=== PATIENT | male | born 1950 | race Caucasian/White ===

== ENCOUNTER 2024-09-20 10:32 | Day surgery (SDC) | payer OTHER ==
[2024-09-16 09:31] LABS: APTT 28 SECONDS (22-32); PROTHROMBIN TIME 10.9 SECONDS (9.0-12.0)
[2024-09-16 09:32] LABS: BASOPHILS % (AUTO) 0.8 % (0-1); EOSINOPHILS # (AUTO) 0.1 X10'3 (0-0.9); EOSINOPHILS % (AUTO) 2.3 % (0-6); HEMATOCRIT 42.9 % (42.0-52.0); HEMOGLOBIN 14.6 g/dl (14.0-17.9); LYMPHOCYTES # (AUTO) 1.5 X10'3 (1.1-4.8); LYMPHOCYTES % (AUTO) 28.9 % (21-51); MEAN CORPUSCULAR HEMOGLOBIN 33.2 PG (27.0-31.0); MEAN CORPUSCULAR VOLUME 97.8 FL (78-98); MEAN PLATELET VOLUME 7.3 FL (7.4-10.4); MONOCYTES # (AUTO) 0.4 X10'3 (0-0.9); MONOCYTES % (AUTO) 8.9 % (2-12); NEUTROPHILS % (AUTO) 59.1 % (42-75); PLATELET COUNT 184 X10'3 (140-440); RED BLOOD COUNT 4.39 X10'6 (4.70-6.10); RED CELL DISTRIBUTION WIDTH 12.9 % (11.5-14.5)
[2024-09-16 10:09] LABS: ANION GAP 7 (8-16); BLOOD UREA NITROGEN 14 MG/DL (7-18); BUN/CREATININE RATIO 15.7 (10.0-20.0); CHLORIDE 105 MMOL/L (99-107); CHOL/HDL RATIO 2.5 (0.00-4.99); CHOLESTEROL 121 MG/DL (0-200); CREATININE 0.89 MG/DL (0.60-1.10); GLUCOSE 105 MG/DL (70-104); HDL CHOLESTEROL 48 MG/DL (35-60); LDL CHOLESTEROL 60 MG/DL (50-100); POTASSIUM 4.1 MMOL/L (3.5-5.1); SODIUM 140 MMOL/L (135-145); TOTAL CARBON DIOXIDE 28.2 MMOL/L (24-32); TRIGLYCERIDES 73 MG/DL (20-135); eGFR 84 ML/MIN
[~2024-09-20] VITALS: Ht 182.9 cm; Wt 99.3 kg
[2024-09-20] VITALS (8 sets, daily range): BP systolic 139–168; BP diastolic 68–81; PULSE 58–64; RESP 16; TEMP 98.1; O2SAT 94–97
[2024-09-20] MEDS ORDERED: diphenhydrAMINE 25mg capsule PO PRN (10:55)
[2024-09-20] MEDS ORDERED: LORazepam 0.5 MG tablet PO PRN (10:55)
[2024-09-20] MEDS ORDERED: normal saline 1,000 ML IV SCH (10:55)
[2024-09-20] MEDS ORDERED: ATOR40TA PO (11:56)
[2024-09-20] MEDS ORDERED: TRIA15CR62 TOP (11:56)
[2024-09-20] MEDS ORDERED: MULT-1085 PO (11:56)
[2024-09-20] MEDS ORDERED: CETI-194 PO (11:56)
[2024-09-20] MEDS ORDERED: CHOL200013 PO (11:56)
[2024-09-20] MEDS ORDERED: OMEG100037 PO (11:56)
[2024-09-20] MEDS ORDERED: 5-HY100C PO (11:56)
[2024-09-20] MEDS ORDERED: AMLO5TAB16 PO (11:56)
[2024-09-20] MEDS ORDERED: NITR0.4T51 SL (11:56)
[2024-09-20] MEDS ORDERED: ASPI81TA52 PO (11:56)
[2024-09-20] MEDS ORDERED: [UNRECOGNIZED DRUG - OTHER] (11:56)
[2024-09-20] MEDS ORDERED: CLOT45CR29 TOP (11:56)
[2024-09-20] MEDS ORDERED: verapamil 2.5 mg/ml inj IV ONE (11:59)
[2024-09-20] MEDS ORDERED: LIDOcaine 1% (10mg/ml) 2ml vial ONE (11:59)
[2024-09-20] MEDS ORDERED: iohexol 350MG/ML 100ml bottle IV ONE ×2 (12:00→13:20)
[2024-09-20] MEDS ORDERED: midazolam 1 mg/ML 2ml injection ONE (12:00)
[2024-09-20] MEDS ORDERED: heparin 1,000unit/ml 10ml vial 10 ML ONE ×2 (12:00→13:31)
[2024-09-20] MEDS ORDERED: fentaNYL/PF 50MCG/1 ML 2ML syringe ONE (12:00)
[2024-09-20] MEDS ORDERED: nitroGLYCERIN 500mcg/5mL D5W 5 ML IV ONE (12:03)
[2024-09-20 13:15] LABS: ISTAT HGB ART 13.3 g/dl (14.0-17.9); ISTAT Hct ART 39 %PCV (42-52); ISTAT O2 SATURATION ARTERIAL 89 % (95-98); ISTAT SOURCE ART
[2024-09-20 13:17] LABS: ISTAT HGB MIX 13.3 g/dl (14.0-17.9); ISTAT Hct MIX 39 %PCV (42-52); ISTAT O2 SATURATION MIX VENOUS 69 % (60-80); ISTAT SOURCE VEN
[2024-09-20] MEDS ORDERED: HYDROcodone/acetaminophen 10/325mg tab PO PRN (14:35)
[2024-09-20] MEDS ORDERED: HYDROcodone/acetaminophen 5mg/325mg tablet PO PRN (14:35)
== END 2024-09-20 16:50 | disposition home or self-care (01) ==
LOC: SSTAY O 10:32
PROVIDERS: ATTEND Student in an Organized Health Care Education/Training Program
DX: I35.0 Nonrheumatic aortic (valve) stenosis (principal); I25.10 Atherosclerotic heart disease of native coronary artery without angina pectoris; I10 Essential (primary) hypertension; G47.33 Obstructive sleep apnea (adult) (pediatric); G47.00 Insomnia, unspecified; E78.5 Hyperlipidemia, unspecified; Z86.0100 Personal history of colon polyps, unspecified; Z79.01 Long term (current) use of anticoagulants; Z79.82 Long term (current) use of aspirin; Z79.899 Other long term (current) drug therapy; Z88.0 Allergy status to penicillin; Z88.5 Allergy status to narcotic agent; Z95.5 Presence of coronary angioplasty implant and graft; Z88.6 Allergy status to analgesic agent; Z88.1 Allergy status to other antibiotic agents; M19.90 Unspecified osteoarthritis, unspecified site
CPT/HCPCS: 36415; 80048; 80061; 82803; 85014; 85025; 85610; 85730; 93005; 93456; 93571; 99152; J1644; J2003; J2250; J3010; J3490; J7030; Q9967; 93572; 99153; A6258; A6402; C1751; C1769; C1894

== ENCOUNTER 2024-09-22 05:09 | Inpatient (IN) | payer OTHER, MEDICARE ==
[2024-09-21 13:47] VITALS: PULSE 72; RESP 14; O2SAT 97
[2024-09-21 14:11] LABS: BASOPHILS % (AUTO) 0.5 % (0-1); EOSINOPHILS # (AUTO) 0.1 X10'3 (0-0.9); EOSINOPHILS % (AUTO) 1.4 % (0-6); LYMPHOCYTES # (AUTO) 1.5 X10'3 (1.1-4.8); LYMPHOCYTES % (AUTO) 25.2 % (21-51); MEAN CORPUSCULAR HEMOGLOBIN 33.1 PG (27.0-31.0); MEAN CORPUSCULAR HGB CONC 33.7 g/dL (33.0-36.5); MEAN CORPUSCULAR VOLUME 98.3 FL (78-98); MEAN PLATELET VOLUME 7.6 FL (7.4-10.4); MONOCYTES # (AUTO) 0.6 X10'3 (0-0.9); MONOCYTES % (AUTO) 9.5 % (2-12); NEUTROPHILS # (AUTO) 3.8 X10'3 (1.8-7.7); NEUTROPHILS % (AUTO) 63.4 % (42-75); PRE OP HEMOGLOBIN 14.5 g/dL (14.0-17.9); PRE OP PLATELET COUNT 193 X10'3 (140-440); RED BLOOD COUNT 4.38 X10'6 (4.70-6.10)
[2024-09-21 14:18] LABS: BILIRUBIN,URINE NEGATIVE (Neg); CLARITY,URINE CLEAR (Clear); COLOR,URINE YELLOW (Yellow); GLUCOSE, URINE NEGATIVE (Neg); KETONES,URINE TRACE mg/dl (Neg); LEUKOCYTE ESTERASE ,URINE NEGATIVE (Neg); NITRITES, URINE NEGATIVE (Neg); OCCULT BLOOD,URINE NEGATIVE (Neg); PH,URINE 5.5 (4.8-8.0); PROTEIN,URINE NEGATIVE (Neg); UROBILINOGEN,URINE 0.2 E.U/dL (0.2-1.0)
[2024-09-21 14:20] LABS: UA COLLECTION TYPE CLN CATCH MIDSTREAM
[2024-09-21 14:27] LABS: PRE OP PROTIME 10.9 SECONDS (9.0-12.0)
[2024-09-21 14:33] LABS: ALBUMIN 3.8 G/DL (3.4-5.0); ALBUMIN/GLOBULIN RATIO 1.2 (1.1-1.5); ALKALINE PHOSPHATASE 48 IU/L (46-116); BLOOD UREA NITROGEN 16 MG/DL (7-18); BUN/CREATININE RATIO 17.4 (10.0-20.0); CALCIUM 8.8 MG/DL (8.5-10.1); CHLORIDE 108 MMOL/L (99-107); CREATININE 0.92 MG/DL (0.60-1.10); PRE OP ALT 37 U/L (30-65); PRE OP ANION GAP 6 (8-16); PRE OP AST 21 U/L (10-37); PRE OP BILIRUB, TOTAL 0.6 MG/DL (0.0-1.0); PRE OP GLUCOSE 118 MG/DL (70-104); PRE OP POTASSIUM 4.4 MMOL/L (3.4-5.1); PRE OP SODIUM 143 MMOL/L (135-145); TOTAL CARBON DIOXIDE 28.8 MMOL/L (24-32); eGFR 81 ML/MIN
[2024-09-21 14:57] LABS: HEMOGLOBIN A1C 5.6 % (4.5-6.2)
[2024-09-21 15:01] LABS: ABG BASE EXCESS -1.4 mmol/L (-2.0-3.0); ABG HCO3 22.8 mmol/L (21.0-28.0); ABG OXYGEN SATURATION 96.3 % (94.0-98.0); ABG PCO2 (T) 36.8 mmHg (35.0-48.0); ABG PO2 (T) 85.9 mmHg (83.0-108.0); FCOHb 0.3 % (0.5-1.5); FHHb 3.7 % (0.0-5.0); FMetHb 0.3 % (0.0-1.5); FO2Hb 95.7 % (94.0-98.0); MODE ROOM AIR; TOTAL HEMOGLOBIN 14.6 G/dl (13.5-17.5)
[2024-09-22] VITALS (7 sets, daily range): BP systolic 104–155; BP diastolic 47–74; PULSE 70–79; RESP 10–16; TEMP 97.8; O2SAT 97–100
[~2024-09-22] VITALS: Ht 177.8 cm; Wt 104.0 kg
[~2024-09-22 05:09] MED LIST: AMLO5TAB16 PO; ATOR40TA PO
[2024-09-22] MEDS: albuterol 2.5 MG/3 ML nebule NEB ONE (05:30)
[2024-09-22] MEDS ORDERED: dextrose 50%-water 50ml dispensing syringe IV PRN ×2 (05:30→20:20)
[2024-09-22] MEDS ORDERED: insulin glargine (Lantus) pen - multi-dose SQ PRN ×2 (05:30→20:20)
[2024-09-22] MEDS: ceFAZolin 2gm in dextrose, iso 50 ML IV ONE (05:30)
[2024-09-22] MEDS ORDERED: Insulin Reg/NS 100units/100mL 100 ML IV SCH (05:30)
[2024-09-22] MEDS ORDERED: potassium Cl 2 mEq/ml inj IV ONE (08:00)
[2024-09-22] MEDS: mupirocin 2% nasal ointment 1gm UD NS ONE (12:20)
[2024-09-22] MEDS: metoprolol tartrate 12.5mg (1/2 tablet) PO ONE (12:21)
[2024-09-22] MEDS: ringers solution, lacted 1,000 ML IV SCH (12:21)
[2024-09-22] MEDS: VANCOMYCIN/H2O 1.5g/300mL PB 300 ML IV ONE (12:22)
[2024-09-22] MEDS: famotidine 20mg tablet PO ONE (12:23)
[2024-09-22] MEDS ORDERED: ceFAZolin 1000mg inj ONE (13:48)
[2024-09-22] MEDS ORDERED: epiNEPHrine 1 mg/ml inj ONE (13:48)
[2024-09-22] MEDS ORDERED: ROPIVAcaine 0.5% (5mg/ml) 30ml vial ONE (13:49)
[2024-09-22] MEDS ORDERED: vancomycin 1,000mg inj ONE (13:49)
[2024-09-22] MEDS ORDERED: ipratropium/albuterol 3ml nebule IH PRN (15:00)
[2024-09-22] MEDS: midazolam 1 mg/ML 2ml injection IV ONE (16:19)
[2024-09-22] MEDS: ceFAZolin 1000mg inj IR ONE (16:20)
[2024-09-22] MEDS ORDERED: isoflurane 100ml inhalation liquid IH ONE (16:32)
[2024-09-22] MEDS ORDERED: SUfentanil 50mcg/ml 1ml amp IV ONE (16:32)
[2024-09-22] MEDS ORDERED: rocuronium 10mg/ml inj IV ONE ×2 (17:05)
[2024-09-22 17:06] LABS: ABG BASE EXCESS -0.4 mmol/L (-2.0-3.0); ABG HCO3 22.6 mmol/L (21.0-28.0); ABG OXYGEN SATURATION 99.5 % (94.0-98.0); ABG PCO2 32.3 mmHg (35.0-48.0); ABG PH 7.463 (7.350-7.450); ABG PO2 459.8 mmHg (83.0-108.0); CL (ABG) 103 mmol/L (98-107); FHHb 0.5 % (0.0-5.0); FMetHb 0.3 % (0.0-1.5); FO2Hb 99.2 % (94.0-98.0); GLUCOSE (ABG) 93 mg/dl (65-95); IONIZED CA (ABG) 1.18 mmol/L (1.15-1.33); K (ABG) 4.4 mmol/L (3.40-4.50); TOTAL HEMOGLOBIN 13.4 G/dl (13.5-17.5)
[2024-09-22 18:06] LABS: ABG BASE EXCESS 1.2 mmol/L (-2.0-3.0); ABG HCO3 24.7 mmol/L (21.0-28.0); ABG OXYGEN SATURATION 98.8 % (94.0-98.0); ABG PCO2 34.5 mmHg (35.0-48.0); ABG PH 7.472 (7.350-7.450); CL (ABG) 100 mmol/L (98-107); FCOHb 0.2 % (0.5-1.5); FHHb 1.2 % (0.0-5.0); FMetHb 0.2 % (0.0-1.5); FO2Hb 98.4 % (94.0-98.0); GLUCOSE (ABG) 101 mg/dl (65-95); IONIZED CA (ABG) 0.99 mmol/L (1.15-1.33); K (ABG) 3.9 mmol/L (3.40-4.50); TOTAL HEMOGLOBIN 9.9 G/dl (13.5-17.5)
[2024-09-22 18:36] LABS: ABG BASE EXCESS 1.3 mmol/L (-2.0-3.0); ABG HCO3 25.3 mmol/L (21.0-28.0); ABG OXYGEN SATURATION 98.9 % (94.0-98.0); ABG PH 7.442 (7.350-7.450); CL (ABG) 102 mmol/L (98-107); FCOHb 0.2 % (0.5-1.5); FHHb 1.1 % (0.0-5.0); FMetHb 0.2 % (0.0-1.5); FO2Hb 98.5 % (94.0-98.0); GLUCOSE (ABG) 121 mg/dl (65-95); IONIZED CA (ABG) 1.02 mmol/L (1.15-1.33); K (ABG) 4.9 mmol/L (3.40-4.50); TOTAL HEMOGLOBIN 10.4 G/dl (13.5-17.5)
[2024-09-22 19:01] LABS: ABG BASE EXCESS -0.3 mmol/L (-2.0-3.0); ABG OXYGEN SATURATION 99.3 % (94.0-98.0); ABG PCO2 37.8 mmHg (35.0-48.0); CL (ABG) 102 mmol/L (98-107); FCOHb 0.3 % (0.5-1.5); FHHb 0.7 % (0.0-5.0); FMetHb 0.3 % (0.0-1.5); FO2Hb 98.7 % (94.0-98.0); GLUCOSE (ABG) 133 mg/dl (65-95); IONIZED CA (ABG) 1.04 mmol/L (1.15-1.33); K (ABG) 5.3 mmol/L (3.40-4.50); TOTAL HEMOGLOBIN 9.8 G/dl (13.5-17.5)
[2024-09-22 19:34] LABS: ABG BASE EXCESS -0.9 mmol/L (-2.0-3.0); ABG HCO3 23.4 mmol/L (21.0-28.0); ABG OXYGEN SATURATION 99.2 % (94.0-98.0); ABG PCO2 37.1 mmHg (35.0-48.0); ABG PH 7.418 (7.350-7.450); CL (ABG) 102 mmol/L (98-107); FCOHb 0.3 % (0.5-1.5); FHHb 0.8 % (0.0-5.0); FMetHb 0.3 % (0.0-1.5); FO2Hb 98.6 % (94.0-98.0); GLUCOSE (ABG) 151 mg/dl (65-95); IONIZED CA (ABG) 1.05 mmol/L (1.15-1.33); TOTAL HEMOGLOBIN 9.9 G/dl (13.5-17.5)
[2024-09-22 19:58] LABS: ABG BASE EXCESS 1.1 mmol/L (-2.0-3.0); ABG HCO3 25.2 mmol/L (21.0-28.0); ABG OXYGEN SATURATION 94.5 % (94.0-98.0); ABG PCO2 37.8 mmHg (35.0-48.0); ABG PH 7.441 (7.350-7.450); ABG PO2 73.9 mmHg (83.0-108.0); CL (ABG) 103 mmol/L (98-107); FCOHb 0.3 % (0.5-1.5); FHHb 5.5 % (0.0-5.0); FMetHb 0.3 % (0.0-1.5); FO2Hb 93.9 % (94.0-98.0); GLUCOSE (ABG) 154 mg/dl (65-95); IONIZED CA (ABG) 1.19 mmol/L (1.15-1.33); K (ABG) 4.6 mmol/L (3.40-4.50); TOTAL HEMOGLOBIN 9.8 G/dl (13.5-17.5)
[2024-09-22 20:01] LABS: ACTIVATED CLOTTING TIME 118 SEC (101-148)
[2024-09-22] MEDS ORDERED: morphine 10mg/ml inj. ONE (20:09)
[2024-09-22] MEDS ORDERED: potassium CL 10mEq/100ml bag 100 ML IV PRN (20:20)
[2024-09-22] MEDS ORDERED: Neutra Phos packet PO PRN (20:20)
[2024-09-22] MEDS ORDERED: metoclopramide 5 mg/ml inj IV PRN (20:20)
[2024-09-22] MEDS ORDERED: potassium Cl 20 mEq SR tablet PO PRN (20:20)
[2024-09-22] MEDS ORDERED: sodium phosphate inj. 15 MMOL in dextrose 5%-water 250 ML IV PRN (20:20)
[2024-09-22] MEDS ORDERED: mineral oil 133ml enema RC PRN (20:20)
[2024-09-22] MEDS ORDERED: potassium Cl 40MEQ/1/2NS 520ml 520 ML IV PRN (20:20)
[2024-09-22] MEDS ORDERED: NORepinephrine 8mg/ 250ml NS 250 ML IV PRN (20:20)
[2024-09-22] MEDS ORDERED: bisacodyl 10mg suppository rectal RC PRN (20:20)
[2024-09-22] MEDS ORDERED: acetaminophen 325mg tablet PO PRN (20:20)
[2024-09-22] MEDS ORDERED: magnesium hydroxide 30ml (MOM) UD suspension PO PRN (20:20)
[2024-09-22] MEDS ORDERED: potassium Cl 20mEq/100mL bag 100 ML IV PRN (20:20)
[2024-09-22] MEDS ORDERED: sodium phosphate inj. 30 MMOL in dextrose 5%-water 250 ML IV PRN (20:20)
[2024-09-22] MEDS ORDERED: magnesium sulf-water 4G/100mL 100 ML IV PRN (20:20)
[2024-09-22] MEDS ORDERED: niCARDipine-NS 40mg/200ml IVPB 200 ML IV PRN (20:20)
[2024-09-22 20:52] LABS: BASOPHILS % (AUTO) 0.3 % (0-1); EOSINOPHILS % (AUTO) 0.4 % (0-6); HEMATOCRIT 32.8 % (42.0-52.0); HEMOGLOBIN 11.1 g/dl (14.0-17.9); LYMPHOCYTES # (AUTO) 0.7 X10'3 (1.1-4.8); LYMPHOCYTES % (AUTO) 7.3 % (21-51); MEAN CORPUSCULAR HEMOGLOBIN 33.3 PG (27.0-31.0); MEAN CORPUSCULAR HGB CONC 33.7 g/dL (33.0-36.5); MEAN CORPUSCULAR VOLUME 98.7 FL (78-98); MEAN PLATELET VOLUME 7.3 FL (7.4-10.4); MONOCYTES # (AUTO) 0.3 X10'3 (0-0.9); MONOCYTES % (AUTO) 3.2 % (2-12); NEUTROPHILS # (AUTO) 9.1 X10'3 (1.8-7.7); NEUTROPHILS % (AUTO) 88.8 % (42-75); PLATELET COUNT 101 X10'3 (140-440); RED BLOOD COUNT 3.32 X10'6 (4.70-6.10); RED CELL DISTRIBUTION WIDTH 12.7 % (11.5-14.5); WHITE BLOOD COUNT 10.2 X10'3 (4.5-11.0)
[2024-09-22 21:12] LABS: ABG BASE EXCESS -1.1 mmol/L (-2.0-3.0); ABG HCO3 21.7 mmol/L (21.0-28.0); ABG OXYGEN SATURATION 98.6 % (94.0-98.0); ABG PCO2 (T) 29.1 mmHg (35.0-48.0); ABG PH (T) 7.487 (7.350-7.450); ABG PO2 (T) 139.2 mmHg (83.0-108.0); FCOHb 0.1 % (0.5-1.5); FHHb 1.4 % (0.0-5.0); FMetHb 0.3 % (0.0-1.5); FO2Hb 98.2 % (94.0-98.0); MODE VENT - SIMV; PATIENT TEMPERATURE 36.2; PEEP 5 cm H2O; RESPIRATORY RATE 14 b/min; TIDAL VOLUME 650 mL; TOTAL HEMOGLOBIN 11.2 G/dl (13.5-17.5)
[2024-09-22] MEDS: sodium chloride 0.45% 1,000 ML IV SCH (21:31)
[2024-09-22] MEDS: Insulin Reg/NS 100units/100mL 100 ML IV SCH (21:36)
[2024-09-22 21:46] LABS: ALANINE AMINOTRANSFERASE 29 U/L (12-78); ALBUMIN 2.8 G/DL (3.4-5.0); ALBUMIN/GLOBULIN RATIO 1.5 (1.1-1.5); ALKALINE PHOSPHATASE 29 IU/L (46-116); ANION GAP 8 (8-16); BILIRUBIN,TOTAL 1.2 MG/DL (0.1-1.0); BLOOD UREA NITROGEN 13 MG/DL (7-18); BUN/CREATININE RATIO 14.4 (10.0-20.0); CALCIUM 7.8 MG/DL (8.5-10.1); CHLORIDE 108 MMOL/L (99-107); GLUCOSE 130 MG/DL (70-104); MAGNESIUM 2.5 MG/DL (1.5-2.4); SODIUM 142 MMOL/L (135-145); TOTAL CARBON DIOXIDE 26.2 MMOL/L (24-32); TOTAL PROTEIN 4.7 G/DL (6.4-8.2); eCRCL 75 ML/MIN; eGFR 83 ML/MIN
[2024-09-22 21:47] LABS: ASPARTATE AMINO TRANSFERASE 46 U/L (10-37); POTASSIUM 3.8 MMOL/L (3.5-5.1)
[2024-09-22] MEDS: atorvastatin 10mg tablet PO SCH (21:47)
[2024-09-22] MEDS: nitroGLYCERIN-Tridil 50MG/D5W 250 ML IV SCH (21:48)
[2024-09-22] MEDS: albumin (Human) 5% 250ml 250 ML IV PRN (21:49)
[2024-09-22 21:59] LABS: APTT 29 SECONDS (22-32); FIBRINOGEN 150 MG/DL (177-424); INR 1.4 INR
[2024-09-22] MEDS ORDERED: sodium phosphate inj. 15 MMOL in normal saline 250ml IV soln 250 ML IV PRN (22:06)
[2024-09-22] MEDS: potassium Cl 40MEQ/270ML bag 250 ML IV PRN (22:44)
[2024-09-22] MEDS: sodium phosphate inj. 30 MMOL in normal saline 250ml IV soln 250 ML IV PRN (22:44)
[2024-09-23] VITALS (27 sets, daily range): BP systolic 89–143; BP diastolic 38–66; PULSE 73–105; RESP 11–27; O2SAT 90–98
[2024-09-23] MEDS: ceFAZolin/D5W- 1GM premix 50 ML IV SCH (00:09)
[2024-09-23] MEDS: morphine 2 MG/ML inj. syringe IV PRN (00:18)
[2024-09-23 01:45] LABS: ABG BASE EXCESS -8.6 mmol/L (-2.0-3.0); ABG HCO3 16.7 mmol/L (21.0-28.0); ABG OXYGEN SATURATION 95.9 % (94.0-98.0); ABG PCO2 (T) 33.2 mmHg (35.0-48.0); ABG PH (T) 7.318 (7.350-7.450); ABG PO2 (T) 94.5 mmHg (83.0-108.0); FCOHb 0.2 % (0.5-1.5); FHHb 4.1 % (0.0-5.0); FMetHb 0.3 % (0.0-1.5); FO2Hb 95.4 % (94.0-98.0); MODE VENT - CPAP; PATIENT TEMPERATURE 36.6; PEEP 5 cm H2O; TOTAL HEMOGLOBIN 10.6 G/dl (13.5-17.5)
[2024-09-23 02:01] LABS: BASOPHILS % (AUTO) 0 % (0-1); EOSINOPHILS % (AUTO) 0 % (0-6); HEMATOCRIT 28.7 % (42.0-52.0); HEMOGLOBIN 9.7 g/dl (14.0-17.9); LYMPHOCYTES # (AUTO) 0.6 X10'3 (1.1-4.8); LYMPHOCYTES % (AUTO) 3.9 % (21-51); MEAN CORPUSCULAR HEMOGLOBIN 33.5 PG (27.0-31.0); MEAN CORPUSCULAR HGB CONC 33.8 g/dL (33.0-36.5); MEAN CORPUSCULAR VOLUME 99.1 FL (78-98); MEAN PLATELET VOLUME 7.6 FL (7.4-10.4); MONOCYTES # (AUTO) 0.5 X10'3 (0-0.9); MONOCYTES % (AUTO) 3.2 % (2-12); NEUTROPHILS % (AUTO) 92.9 % (42-75); PLATELET COUNT 125 X10'3 (140-440); RED CELL DISTRIBUTION WIDTH 12.9 % (11.5-14.5); WHITE BLOOD COUNT 16.2 X10'3 (4.5-11.0)
[2024-09-23 02:45] LABS: ALANINE AMINOTRANSFERASE 29 U/L (12-78); ALBUMIN 3.6 G/DL (3.4-5.0); ALKALINE PHOSPHATASE 24 IU/L (46-116); ANION GAP 18 (8-16); ASPARTATE AMINO TRANSFERASE 49 U/L (10-37); BILIRUBIN,TOTAL 1.2 MG/DL (0.1-1.0); BLOOD UREA NITROGEN 17 MG/DL (7-18); CALCIUM 7.8 MG/DL (8.5-10.1); CHLORIDE 110 MMOL/L (99-107); CREATININE 1.54 MG/DL (0.60-1.10); GLUCOSE 156 MG/DL (70-104); MAGNESIUM 2.2 MG/DL (1.5-2.4); PHOSPHORUS 4.6 MG/DL (2.3-4.5); SODIUM 147 MMOL/L (135-145); TOTAL CARBON DIOXIDE 19.4 MMOL/L (24-32); TOTAL PROTEIN 5.4 G/DL (6.4-8.2); eCRCL 44 ML/MIN; eGFR 45 ML/MIN
[2024-09-23] MEDS: magnesium sulf-water 2g/50mL 50 ML IV PRN (03:01)
[2024-09-23] MEDS: morphine 4 MG/ML inj SYRINge IV PRN (03:40)
[2024-09-23] MEDS: vancomycin/NS 1 GM ADD-VANTAGE 250 ML IV SCH (04:01)
[2024-09-23] MEDS: HYDROcodone/acetaminophen 10/325mg tab PO PRN ×2 (05:04→08:51)
[2024-09-23] MEDS ORDERED: dextrose 50%-water 50ml dispensing syringe IV PRN ×2 (08:25)
[2024-09-23] MEDS ORDERED: DEXTROSE 15 GM of carb/4 tabs (each vial/BOTTLE has 4 tablets) PO PRN ×2 (08:25)
[2024-09-23] MEDS ORDERED: glucagon, human recombinant 1mg kit SUBCUT PRN (08:25)
[2024-09-23] MEDS: metoprolol tartrate 12.5mg (1/2 tablet) PO SCH (08:49)
[2024-09-23] MEDS: aspirin 81mg tab.chew PO SCH (08:49)
[2024-09-23] MEDS: mupirocin 2% nasal ointment 1gm UD NS SCH (08:50)
[2024-09-23] MEDS: sennosides/docusate sodium tablet PO SCH (08:52)
[2024-09-23 08:59] LABS: MAGNESIUM 2.8 MG/DL (1.5-2.4); PHOSPHORUS 4.1 MG/DL (2.3-4.5); POTASSIUM 5.1 MMOL/L (3.5-5.1)
[2024-09-23] MEDS: insulin glargine (Lantus) pen - multi-dose SQ SCH (09:20)
[2024-09-23 10:15] LABS: ABG PO2 450.1 mmHg (83.0-108.0)
[2024-09-23 10:16] LABS: ABG PO2 449.9 mmHg (83.0-108.0)
[2024-09-23 10:17] LABS: ABG PO2 416.8 mmHg (83.0-108.0)
[2024-09-23] MEDS ORDERED: ketorolac trometh 15mg/ml vial 15 MG/ML ML IM PRN (11:30)
[2024-09-23] MEDS: INSULIN LISPRO 100 UNIT/ML INSULN.PEN MULTI-DOSE SQ SCH (12:30)
[2024-09-23] MEDS: ketorolac trometh 15mg/ml vial 15 MG/ML ML IV PRN (12:30)
[2024-09-23] MEDS: acetaminophen 325mg tablet PO PRN (19:46)
[2024-09-23] MEDS: dexmedetomidin/NS 400mcg/100ml 100 ML IV SCH (20:55)
[2024-09-24] VITALS (25 sets, daily range): BP systolic 87–150; BP diastolic 44–72; PULSE 60–93; RESP 14–26; O2SAT 91–98
[2024-09-24 02:35] LABS: BASOPHILS % (AUTO) 0.1 % (0-1); EOSINOPHILS % (AUTO) 0 % (0-6); HEMATOCRIT 23.2 % (42.0-52.0); HEMOGLOBIN 7.8 g/dl (14.0-17.9); LYMPHOCYTES # (AUTO) 0.8 X10'3 (1.1-4.8); MEAN CORPUSCULAR HEMOGLOBIN 33.3 PG (27.0-31.0); MEAN CORPUSCULAR HGB CONC 33.8 g/dL (33.0-36.5); MEAN CORPUSCULAR VOLUME 98.4 FL (78-98); MEAN PLATELET VOLUME 8.5 FL (7.4-10.4); MONOCYTES # (AUTO) 0.8 X10'3 (0-0.9); MONOCYTES % (AUTO) 6.5 % (2-12); NEUTROPHILS # (AUTO) 10.9 X10'3 (1.8-7.7); NEUTROPHILS % (AUTO) 87.4 % (42-75); PLATELET COUNT 62 X10'3 (140-440); RED BLOOD COUNT 2.35 X10'6 (4.70-6.10); RED CELL DISTRIBUTION WIDTH 12.8 % (11.5-14.5); WHITE BLOOD COUNT 12.5 X10'3 (4.5-11.0)
[2024-09-24 02:51] LABS: ALBUMIN 3.2 G/DL (3.4-5.0); ANION GAP 4 (8-16); BLOOD UREA NITROGEN 34 MG/DL (7-18); CALCIUM 7.5 MG/DL (8.5-10.1); CHLORIDE 106 MMOL/L (99-107); CREATININE 1.62 MG/DL (0.60-1.10); GLUCOSE 156 MG/DL (70-104); POTASSIUM 5.3 MMOL/L (3.5-5.1); SODIUM 137 MMOL/L (135-145); eCRCL 42 ML/MIN; eGFR 42 ML/MIN
[2024-09-24 03:23] LABS: PLATELET ESTIMATE DECREASED
[2024-09-24 04:22] LABS: MAGNESIUM 2.8 MG/DL (1.5-2.4); PHOSPHORUS 4.6 MG/DL (2.3-4.5)
[2024-09-24] MEDS: heparin, porcine 5000 units/ml vial SQ SCH (07:49)
[2024-09-24] MEDS: furosemide 40mg/4ml inj IV ONE (07:49)
[2024-09-24 11:58] LABS: EOSINOPHILS % (AUTO) 0 % (0-6); MONOCYTES # (AUTO) 0.7 X10'3 (0-0.9); NEUTROPHILS % (AUTO) 87.1 % (42-75); PLATELET COUNT 68 X10'3 (140-440)
[2024-09-24 12:00] LABS: BASOPHILS % (AUTO) 0.1 % (0-1); HEMOGLOBIN 8.5 g/dl (14.0-17.9); LYMPHOCYTES % (AUTO) 7.7 % (21-51); MEAN CORPUSCULAR HEMOGLOBIN 33.4 PG (27.0-31.0); MEAN CORPUSCULAR HGB CONC 34.1 g/dL (33.0-36.5); MEAN CORPUSCULAR VOLUME 97.8 FL (78-98); MEAN PLATELET VOLUME 8.3 FL (7.4-10.4); MONOCYTES % (AUTO) 5.1 % (2-12); NEUTROPHILS # (AUTO) 11.5 X10'3 (1.8-7.7); RED BLOOD COUNT 2.55 X10'6 (4.70-6.10); WHITE BLOOD COUNT 13.2 X10'3 (4.5-11.0)
[2024-09-24 12:10] LABS: ALANINE AMINOTRANSFERASE 29 U/L (12-78); ALBUMIN 3.2 G/DL (3.4-5.0); ALBUMIN/GLOBULIN RATIO 1.3 (1.1-1.5); ALKALINE PHOSPHATASE 30 IU/L (46-116); ANION GAP 6 (8-16); ASPARTATE AMINO TRANSFERASE 66 U/L (10-37); BILIRUBIN,TOTAL 0.6 MG/DL (0.1-1.0); BLOOD UREA NITROGEN 36 MG/DL (7-18); BUN/CREATININE RATIO 26.5 (10.0-20.0); CALCIUM 7.9 MG/DL (8.5-10.1); CHLORIDE 107 MMOL/L (99-107); CREATININE 1.36 MG/DL (0.60-1.10); GLUCOSE 136 MG/DL (70-104); MAGNESIUM 2.6 MG/DL (1.5-2.4); PHOSPHORUS 4.5 MG/DL (2.3-4.5); POTASSIUM 4.6 MMOL/L (3.5-5.1); SODIUM 141 MMOL/L (135-145); TOTAL PROTEIN 5.6 G/DL (6.4-8.2); eCRCL 50 ML/MIN; eGFR 51 ML/MIN
[2024-09-24] MEDS: pantoprazole 40mg Tablet.DR PO SCH (12:43)
[2024-09-24] MEDS: polyvinyl alcohol eye drops 15ML BOTTLE EACHEYE PRN (13:55)
[2024-09-24] MEDS: ondansetron/PF 4mg/2ml inj IV PRN (19:13)
[2024-09-25] VITALS (26 sets, daily range): BP systolic 113–160; BP diastolic 54–71; PULSE 62–87; RESP 11–29; O2SAT 92–96
[2024-09-25 03:29] LABS: ANION GAP 6 (8-16); BLOOD UREA NITROGEN 39 MG/DL (7-18); BUN/CREATININE RATIO 32.2 (10.0-20.0); CALCIUM 7.7 MG/DL (8.5-10.1); CHLORIDE 106 MMOL/L (99-107); CREATININE 1.21 MG/DL (0.60-1.10); GLUCOSE 137 MG/DL (70-104); POTASSIUM 4.6 MMOL/L (3.5-5.1); SODIUM 140 MMOL/L (135-145); eCRCL 56 ML/MIN; eGFR 59 ML/MIN
[2024-09-25 06:58] LABS: MAGNESIUM 2.7 MG/DL (1.5-2.4); PHOSPHORUS 3.4 MG/DL (2.3-4.5)
[2024-09-25 07:14] LABS: BASOPHILS % (AUTO) 0.1 % (0-1); EOSINOPHILS % (AUTO) 0 % (0-6); HEMOGLOBIN 8.2 g/dl (14.0-17.9); LYMPHOCYTES # (AUTO) 1.1 X10'3 (1.1-4.8); MEAN CORPUSCULAR HEMOGLOBIN 33.3 PG (27.0-31.0); NEUTROPHILS # (AUTO) 9.3 X10'3 (1.8-7.7); RED CELL DISTRIBUTION WIDTH 12.9 % (11.5-14.5)
[2024-09-25 07:16] LABS: LYMPHOCYTES % (AUTO) 10.3 % (21-51); MEAN CORPUSCULAR HGB CONC 34.1 g/dL (33.0-36.5); MEAN CORPUSCULAR VOLUME 97.7 FL (78-98); MONOCYTES # (AUTO) 0.6 X10'3 (0-0.9); MONOCYTES % (AUTO) 5.6 % (2-12); PLATELET COUNT 71 X10'3 (140-440); RED BLOOD COUNT 2.45 X10'6 (4.70-6.10)
[2024-09-25] MEDS ORDERED: potassium Cl 40MEQ/270ML bag 250 ML IV PRN (09:45)
[2024-09-25] MEDS ORDERED: potassium CL 10mEq/100ml bag 100 ML IV PRN (09:45)
[2024-09-25] MEDS ORDERED: magnesium sulf-water 2g/50mL 50 ML IV PRN (09:45)
[2024-09-25] MEDS ORDERED: potassium Cl 20mEq/100mL bag 100 ML IV PRN (09:45)
[2024-09-25] MEDS ORDERED: potassium Cl 20 mEq SR tablet PO PRN (09:45)
[2024-09-25] MEDS ORDERED: potassium Cl 40MEQ/1/2NS 520ml 520 ML IV PRN (09:45)
[2024-09-25] MEDS ORDERED: magnesium sulf-water 4G/100mL 100 ML IV PRN (09:45)
[2024-09-25] MEDS: magnesium Cl slow-release 64mg tablet PO SCH (20:10)
[2024-09-25] MEDS: diphenhydrAMINE 50 mg/ml inj IV ONE (22:58)
[2024-09-26] VITALS (11 sets, daily range): BP systolic 115–152; BP diastolic 58–82; PULSE 70–88; RESP 13–20; TEMP 97.6–101.5; O2SAT 96–99
[2024-09-26 06:47] LABS: BASOPHILS % (AUTO) 0.1 % (0-1); EOSINOPHILS % (AUTO) 0.1 % (0-6); HEMATOCRIT 24.4 % (42.0-52.0); HEMOGLOBIN 8.4 g/dl (14.0-17.9); LYMPHOCYTES % (AUTO) 9.4 % (21-51); MEAN CORPUSCULAR HEMOGLOBIN 33.9 PG (27.0-31.0); MEAN CORPUSCULAR HGB CONC 34.5 g/dL (33.0-36.5); MEAN CORPUSCULAR VOLUME 98.1 FL (78-98); MEAN PLATELET VOLUME 8.7 FL (7.4-10.4); MONOCYTES # (AUTO) 0.9 X10'3 (0-0.9); MONOCYTES % (AUTO) 8.2 % (2-12); NEUTROPHILS # (AUTO) 8.7 X10'3 (1.8-7.7); NEUTROPHILS % (AUTO) 82.2 % (42-75); PLATELET COUNT 105 X10'3 (140-440); RED BLOOD COUNT 2.48 X10'6 (4.70-6.10); RED CELL DISTRIBUTION WIDTH 13.1 % (11.5-14.5); WHITE BLOOD COUNT 10.6 X10'3 (4.5-11.0)
[2024-09-26 07:06] LABS: ALBUMIN 2.9 G/DL (3.4-5.0); ANION GAP 7 (8-16); BLOOD UREA NITROGEN 26 MG/DL (7-18); BUN/CREATININE RATIO 24.3 (10.0-20.0); CALCIUM 7.8 MG/DL (8.5-10.1); CHLORIDE 106 MMOL/L (99-107); CREATININE 1.07 MG/DL (0.60-1.10); GLUCOSE 101 MG/DL (70-104); MAGNESIUM 2.5 MG/DL (1.5-2.4); SODIUM 140 MMOL/L (135-145); TOTAL CARBON DIOXIDE 26.9 MMOL/L (24-32); eCRCL 63 ML/MIN; eGFR 68 ML/MIN
[2024-09-26] MEDS: furosemide 20MG tablet PO SCH (10:05)
[2024-09-26] MEDS: amiodarone 150mg/dext, iso-os 100 ML IV ONE (21:33)
[2024-09-26] MEDS: amiodarone/D5 360MG/200ML BAG 200 ML IV SCH (22:06)
[2024-09-27] VITALS (15 sets, daily range): BP systolic 101–165; BP diastolic 57–86; PULSE 70–90; RESP 15–20; TEMP 97.3–99.5; O2SAT 94–98
[2024-09-27 06:23] LABS: BASOPHILS % (AUTO) 0.1 % (0-1); EOSINOPHILS % (AUTO) 0.4 % (0-6); HEMOGLOBIN 8.4 g/dl (14.0-17.9); LYMPHOCYTES % (AUTO) 9.7 % (21-51); MEAN CORPUSCULAR HEMOGLOBIN 33.3 PG (27.0-31.0); MEAN CORPUSCULAR HGB CONC 33.7 g/dL (33.0-36.5); MEAN CORPUSCULAR VOLUME 98.7 FL (78-98); MEAN PLATELET VOLUME 8.2 FL (7.4-10.4); MONOCYTES # (AUTO) 0.9 X10'3 (0-0.9); MONOCYTES % (AUTO) 8.6 % (2-12); NEUTROPHILS # (AUTO) 8.1 X10'3 (1.8-7.7); NEUTROPHILS % (AUTO) 81.2 % (42-75); PLATELET COUNT 133 X10'3 (140-440); RED BLOOD COUNT 2.53 X10'6 (4.70-6.10)
[2024-09-27 07:06] LABS: ALBUMIN 2.6 G/DL (3.4-5.0); ANION GAP 8 (8-16); BLOOD UREA NITROGEN 22 MG/DL (7-18); BUN/CREATININE RATIO 19.1 (10.0-20.0); CALCIUM 7.9 MG/DL (8.5-10.1); CHLORIDE 104 MMOL/L (99-107); CREATININE 1.15 MG/DL (0.60-1.10); GLUCOSE 124 MG/DL (70-104); POTASSIUM 4.1 MMOL/L (3.5-5.1); SODIUM 139 MMOL/L (135-145); eCRCL 59 ML/MIN; eGFR 62 ML/MIN
[2024-09-27] MEDS: lactose-reduced food (Ensure Enlive) - 237ml bottle PO SCH (13:00)
[2024-09-27] MEDS: amiodarone 200mg tablet PO SCH (15:01)
[2024-09-28] VITALS (9 sets, daily range): BP systolic 135–155; BP diastolic 60–85; PULSE 72–88; RESP 12–20; TEMP 97.1–97.8; O2SAT 91–98
[2024-09-28 06:33] LABS: ALBUMIN 2.6 G/DL (3.4-5.0); ANION GAP 11 (8-16); BLOOD UREA NITROGEN 22 MG/DL (7-18); BUN/CREATININE RATIO 19.6 (10.0-20.0); CHLORIDE 104 MMOL/L (99-107); CREATININE 1.12 MG/DL (0.60-1.10); GLUCOSE 112 MG/DL (70-104); POTASSIUM 3.6 MMOL/L (3.5-5.1); SODIUM 141 MMOL/L (135-145); TOTAL CARBON DIOXIDE 26.5 MMOL/L (24-32); eCRCL 61 ML/MIN; eGFR 64 ML/MIN
[2024-09-28 07:23] LABS: BASOPHILS % (AUTO) 0.1 % (0-1); EOSINOPHILS # (AUTO) 0.1 X10'3 (0-0.9); EOSINOPHILS % (AUTO) 1.1 % (0-6); HEMATOCRIT 25.9 % (42.0-52.0); HEMOGLOBIN 8.8 g/dl (14.0-17.9); LYMPHOCYTES # (AUTO) 1.6 X10'3 (1.1-4.8); LYMPHOCYTES % (AUTO) 15.5 % (21-51); MEAN CORPUSCULAR HEMOGLOBIN 33.6 PG (27.0-31.0); MEAN CORPUSCULAR HGB CONC 33.8 g/dL (33.0-36.5); MEAN CORPUSCULAR VOLUME 99.3 FL (78-98); MEAN PLATELET VOLUME 8.6 FL (7.4-10.4); MONOCYTES # (AUTO) 0.9 X10'3 (0-0.9); MONOCYTES % (AUTO) 8.4 % (2-12); NEUTROPHILS # (AUTO) 7.7 X10'3 (1.8-7.7); NEUTROPHILS % (AUTO) 74.9 % (42-75); PLATELET COUNT 165 X10'3 (140-440); RED BLOOD COUNT 2.61 X10'6 (4.70-6.10); RED CELL DISTRIBUTION WIDTH 12.9 % (11.5-14.5); WHITE BLOOD COUNT 10.2 X10'3 (4.5-11.0)
[2024-09-28] MEDS: potassium Cl 20 mEq SR tablet PO PRN (09:28)
[2024-09-28] MEDS ORDERED: APIX5TAB3 PO (14:22)
[2024-09-28] MEDS ORDERED: LOP12.5T PO (14:22)
[2024-09-28] MEDS ORDERED: ASPI81TA53 PO (14:22)
[2024-09-28] MEDS ORDERED: AMI200T PO (14:22)
[2024-09-28] MEDS ORDERED: HYDR-3972 PO (14:24)
[2024-09-28] MEDS: apixaban 5mg tablet PO SCH (21:09)
[2024-09-29 02:00] VITALS: BP 149/81; PULSE 72; RESP 16; TEMP 97.6; O2SAT 97
[2024-09-29 06:06] LABS: ALBUMIN 2.7 G/DL (3.4-5.0); ANION GAP 5 (8-16); BLOOD UREA NITROGEN 18 MG/DL (7-18); BUN/CREATININE RATIO 19.4 (10.0-20.0); CALCIUM 8.1 MG/DL (8.5-10.1); CHLORIDE 104 MMOL/L (99-107); CREATININE 0.93 MG/DL (0.60-1.10); GLUCOSE 114 MG/DL (70-104); POTASSIUM 3.9 MMOL/L (3.5-5.1); SODIUM 139 MMOL/L (135-145); TOTAL CARBON DIOXIDE 30.2 MMOL/L (24-32); eCRCL 73 ML/MIN; eGFR 80 ML/MIN
[2024-09-29 07:39] VITALS: BP_SYST 162; PULSE 86
[2024-09-29 08:00] VITALS: RESP 18; O2SAT 98
[2024-09-29] MEDS ORDERED: POTA-206 PO (08:11)
[2024-09-29] MEDS ORDERED: FURO-150 PO (08:11)
== END 2024-09-29 10:42 | disposition home or self-care (01) | DRG 219 ==
LOC: PAS IN 09:05 → CICU 2S 19:22 → PCU 3S 09-26 00:44
PROVIDERS: ADMIT Thoracic Surgery (Cardiothoracic Vascular Surgery); ATTEND Thoracic Surgery (Cardiothoracic Vascular Surgery)
PROC: 02RF08Z Replacement of Aortic Valve with Zooplastic Tissue, Open Approach (ICD-10-PCS; 2024-09-22)
PROC: 06BP4ZZ Excision of Right Saphenous Vein, Percutaneous Endoscopic Approach (ICD-10-PCS; 2024-09-22)
PROC: 02100Z9 Bypass Coronary Artery, One Artery from Left Internal Mammary, Open Approach (ICD-10-PCS; 2024-09-22)
PROC: B24BZZ4 Ultrasonography of Heart with Aorta, Transesophageal (ICD-10-PCS; 2024-09-22)
PROC: 021109W Bypass Coronary Artery, Two Arteries from Aorta with Autologous Venous Tissue, Open Approach (ICD-10-PCS; principal; 2024-09-22 16:32)
DX: I25.10 Atherosclerotic heart disease of native coronary artery without angina pectoris (principal); N17.0 Acute kidney failure with tubular necrosis; G45.9 Transient cerebral ischemic attack, unspecified; S22.42XA Multiple fractures of ribs, left side, initial encounter for closed fracture; I48.92 Unspecified atrial flutter; I35.0 Nonrheumatic aortic (valve) stenosis; I10 Essential (primary) hypertension; I48.91 Unspecified atrial fibrillation; F03.90 Unspecified dementia, unspecified severity, without behavioral disturbance, psychotic disturbance, mood disturbance, and anxiety; E78.5 Hyperlipidemia, unspecified; R41.0 Disorientation, unspecified; X58.XXXA Exposure to other specified factors, initial encounter; Y93.89 Activity, other specified; Y92.89 Other specified places as the place of occurrence of the external cause; Z86.73 Personal history of transient ischemic attack (TIA), and cerebral infarction without residual deficits; Y99.8 Other external cause status
CPT/HCPCS: 36415; 36600; 70450; 71045; 71046; 76376; 80048; 80053; 81003; 82330; 82435; 82803; 82947; 82948; 83036; 83735; 84100; 84132; 84295; 85008; 85018; 85025; 85347; 85384; 85610; 85730; 86885; 86900; 86901; 86920; 87081; 93005; 93312; 93325; 93880; 93970; 94002; 94010; 94760; 97110; 97116; 97161; 97530; A4615; A4618; A6258; A6402; A6449; A7000; A7048; C1751; G0378; J0171; J0282; J0690; J1200; J1644; J1815; J1885; J1940; J2150; J2250; J2270; J2274; J2371; J2405; J2795; J2919; J3370; J3372; J3480; J3490; J7030; J7040; J7050; J7120; P9016; P9045; P9047

== ENCOUNTER 2024-10-03 11:47 | Emergency (ER) | payer OTHER, MEDICARE ==
[~2024-10-03] VITALS: Ht 177.8 cm; Wt 92.7 kg
[~2024-10-03 11:47] MED LIST changes: +AMI200T PO; -AMLO5TAB16 PO; +APIX5TAB3 PO; +ASPI81TA53 PO; +FURO-150 PO; +HYDR-3972 PO; +LOP12.5T PO; +POTA-206 PO
[2024-10-03 12:34] LABS: BASOPHILS # (AUTO) 0.1 X10'3 (0-0.2); BASOPHILS % (AUTO) 0.6 % (0-1); EOSINOPHILS # (AUTO) 0.1 X10'3 (0-0.9); EOSINOPHILS % (AUTO) 0.7 % (0-6); HEMATOCRIT 29.5 % (42.0-52.0); HEMOGLOBIN 9.4 g/dl (14.0-17.9); LYMPHOCYTES # (AUTO) 1.2 X10'3 (1.1-4.8); LYMPHOCYTES % (AUTO) 8.3 % (21-51); MEAN CORPUSCULAR HEMOGLOBIN 32.2 PG (27.0-31.0); MEAN CORPUSCULAR VOLUME 100.7 FL (78-98); MEAN PLATELET VOLUME 7.2 FL (7.4-10.4); MONOCYTES # (AUTO) 0.7 X10'3 (0-0.9); MONOCYTES % (AUTO) 4.5 % (2-12); NEUTROPHILS # (AUTO) 12.4 X10'3 (1.8-7.7); NEUTROPHILS % (AUTO) 85.9 % (42-75); PLATELET COUNT 225 X10'3 (140-440); RED BLOOD COUNT 2.93 X10'6 (4.70-6.10); RED CELL DISTRIBUTION WIDTH 13.9 % (11.5-14.5); WHITE BLOOD COUNT 14.5 X10'3 (4.5-11.0)
[2024-10-03 12:41] LABS: ALANINE AMINOTRANSFERASE 37 U/L (12-78); ALBUMIN/GLOBULIN RATIO 0.8 (1.1-1.5); ALKALINE PHOSPHATASE 53 IU/L (46-116); ANION GAP 8 (8-16); ASPARTATE AMINO TRANSFERASE 27 U/L (10-37); BILIRUBIN,TOTAL 0.9 MG/DL (0.1-1.0); BLOOD UREA NITROGEN 18 MG/DL (7-18); BUN/CREATININE RATIO 17.1 (10.0-20.0); CALCIUM 8.3 MG/DL (8.5-10.1); CHLORIDE 103 MMOL/L (99-107); CREATININE 1.05 MG/DL (0.60-1.10); GLUCOSE 146 MG/DL (70-104); POTASSIUM 4.1 MMOL/L (3.5-5.1); SODIUM 137 MMOL/L (135-145); TOTAL CARBON DIOXIDE 26.5 MMOL/L (24-32); TOTAL PROTEIN 6.8 G/DL (6.4-8.2); eCRCL 65 ML/MIN; eGFR 69 ML/MIN
[2024-10-03 12:46] LABS: PRO BRAIN NATRIURETIC PEPTIDE 1307 PG/ML (0-125)
[2024-10-03] MEDS: aspirin 325mg tablet PO ONE (16:53)
[2024-10-03 16:54] VITALS: BP 152/76; PULSE 76; RESP 27; O2SAT 96
[2024-10-03] MEDS ORDERED: HYDROcodone/acetaminophen 10/325mg tab PO PRN (17:00)
[2024-10-03] MEDS ORDERED: acetaminophen 325mg tablet PO PRN ×2 (17:00)
[2024-10-03] MEDS ORDERED: mag hydrox/Alum hydrox/simeth 30ml oral suspension PO PRN (17:00)
[2024-10-03] MEDS ORDERED: morphine 2 MG/ML inj. syringe IV PRN (17:00)
[2024-10-03] MEDS ORDERED: potassium Cl 40MEQ/1/2NS 520ml 520 ML IV PRN (17:00)
[2024-10-03] MEDS ORDERED: HYDROcodone/acetaminophen 5mg/325mg tablet PO PRN (17:00)
[2024-10-03] MEDS ORDERED: ondansetron/PF 4mg/2ml inj IV PRN (17:00)
[2024-10-03] MEDS ORDERED: magnesium sulf-water 2g/50mL 50 ML IV PRN (17:00)
[2024-10-03] MEDS ORDERED: magnesium Cl slow-release 64mg tablet PO PRN (17:00)
[2024-10-03] MEDS ORDERED: magnesium sulf-water 4G/100mL 100 ML IV PRN (17:00)
[2024-10-03] MEDS ORDERED: potassium Cl 20 mEq SR tablet PO PRN ×2 (17:00)
[2024-10-03] MEDS ORDERED: furosemide 10 MG/1 ML 10ml inj IV SCH (17:05)
[2024-10-03 17:37] VITALS: TEMP 97.5
[2024-10-03 17:49] LABS: BILIRUBIN,DIRECT 0.3 MG/DL (0-0.3); THYROID STIMULATING HORMONE 5.01 ulU/ml (0.34-4.50)
[2024-10-03] MEDS ORDERED: apixaban 5mg tablet PO SCH (20:00)
[2024-10-03] MEDS ORDERED: K and/or MAG REPLACEMENT MC SCH (20:00)
[2024-10-03] MEDS ORDERED: heparin, porcine 5000 units/ml vial SQ SCH (20:00)
[2024-10-03] MEDS ORDERED: metoprolol tartrate 12.5mg (1/2 tablet) PO SCH (20:00)
[2024-10-03] MEDS ORDERED: amiodarone 200mg tablet PO SCH (20:00)
== END 2024-10-03 17:39 | disposition left against medical advice (07) ==
LOC: ER 11:49
DX: R07.9 Chest pain, unspecified (principal); E78.5 Hyperlipidemia, unspecified; F03.90 Unspecified dementia, unspecified severity, without behavioral disturbance, psychotic disturbance, mood disturbance, and anxiety; I10 Essential (primary) hypertension; I25.10 Atherosclerotic heart disease of native coronary artery without angina pectoris; I48.91 Unspecified atrial fibrillation; Z88.0 Allergy status to penicillin; Z88.5 Allergy status to narcotic agent; Z95.1 Presence of aortocoronary bypass graft; Z95.2 Presence of prosthetic heart valve; Z79.82 Long term (current) use of aspirin
CPT/HCPCS: 36415; 71045; 80053; 82248; 83880; 84443; 84484; 85025; 93005; 99285

== ENCOUNTER 2024-10-05 20:11 | Emergency (ER) | payer OTHER, MEDICARE ==
[2024-10-05 20:24] VITALS: BP 155/67; PULSE 81
[2024-10-05] MEDS: ondansetron 4mg rapidly disintigrating tab PO STA (20:45)
[2024-10-05] MEDS ORDERED: ONDA-243 PO (21:16)
[2024-10-05 21:27] VITALS: RESP 14; TEMP 96.8; O2SAT 100
== END 2024-10-05 21:30 | disposition home or self-care (01) ==
LOC: ER 20:12
DX: Z00.8 Encounter for other general examination (principal); R11.0 Nausea; Z88.0 Allergy status to penicillin; Z88.5 Allergy status to narcotic agent; Z95.1 Presence of aortocoronary bypass graft; Z79.82 Long term (current) use of aspirin
CPT/HCPCS: 99283

== ENCOUNTER → 2024-10-18 | Outpatient (CLI) | payer OTHER, MEDICARE ==
[~2024-10-18] MED LIST changes: +ONDA-243 PO
== END | disposition home or self-care (01) ==
LOC: RAD 10:47
PROVIDERS: ATTEND Thoracic Surgery (Cardiothoracic Vascular Surgery)
DX: I51.7 Cardiomegaly (principal); J90 Pleural effusion, not elsewhere classified; J98.11 Atelectasis
CPT/HCPCS: 71046

== ENCOUNTER 2025-02-08 03:03 | Emergency (ER) | payer OTHER, MEDICARE ==
[~2025-02-08] VITALS: Ht 182.9 cm; Wt 96.2 kg
[2025-02-08 03:15] LABS: MEAN PLATELET VOLUME 7.5 FL (7.4-10.4); RED CELL DISTRIBUTION WIDTH 17.9 % (11.5-14.5)
--- NOTE | 2025-02-08 03:18 | Physician Documentation ---
History of Present Illness ~ Chief Complaint: Chest Pain Stated Complaint: CHEST PAIN Time Seen by MD: 03:17 Primary Medical Doctor: Dr. Pederson HPI Patient presents to the emergency room for evaluation of chest pain. 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 Gavin. He states that this evening noticed some discomfort in place some ice in his chest and made it feel better and felt that that has likely his chest wall pain as he did increase his weight lifting routine this past day. He again woke up this evening and therefore decided to come in to be evaluated that has continued to hurt. Patient can move his chest around in arms around without exacerbating pain. He states he did take some nitroglycerin earlier which seemed to help. No current pain. Medication Reconciliation Allergies: Coded Allergies: amoxicillin (Verified Allergy, Unknown, ITCHY, 02/08/25) codeine (Verified Allergy, Unknown, HYPEREMOTIONAL AND CRYING, 02/08/25) Scheduled Amiodarone Hcl (Cordarone), 200 MG PO DAILY Apixaban (Eliquis), 5 MG PO BID Apixaban (Eliquis), 1 TAB PO Q12H Aspirin (Children's Aspirin), 81 MG PO Q24H@0830 Atorvastatin Calcium* (Lipitor*), 1 TAB PO DAILY, (Reported) Furosemide (Lasix), 20 MG PO DAILY Metoprolol Tartrate (Lopressor tablet), 12.5 MG PO Q12H ONDANSETRON ODT 4mg tablet (Ondansetron Odt), 4 MG PO BID Potassium Chloride (K-Dur), 10 MEQ PO DAILY Scheduled PRN Hydrocodone Bit/Acetaminophen (Hydrocodon-Acetaminophn 10-325 tablet), 1 TAB PO Q6H PRN for MODERATE PAIN 4-6 Review of Systems ROS All review of systems negative except as per HPI Physical Exam Vital Signs: Temperature: 98.1, Source: Oral, Heart Rate: 70, Respiratory Rate: 16, BP: 132/65, Pulse Oximetry: 97, Weight: 96.200 Oxygen Flow Rate: 0 Physical Exam General: Patient is awake, alert, oriented x4 in no acute distress and well appearing.~ Head: Normocephalic and atraumatic. Eyes: Conjunctival normal. EOMI. PERRL. ENT: Mucous membranes moist. Neck: Supple, trachea is midline. Chest: Clear to auscultation bilaterally without rales, rhonchi, or wheezes. There is no accessory muscle use or retractions. Cardiac: RRR without murmurs, gallops, or rubs. Extremities: Normal strength. Normal range of motion. No deformities or edema. No calf tenderness to palpation Progress Results/Orders Results/Orders Orders - DENNY MENDEZ MD Chest,Single View (02/08/25 03:21) Monitor (02/08/25 03:08) Saline Lock (02/08/25 03:08) Oxygen (02/08/25 03:08) Hs Troponin I W Calculations (02/08/25 06:08) Completed Orders - DENNY MENDEZ MD Chest,Single View (02/08/25 03:21) Cbc/Diff (02/08/25 03:08) BMP (02/08/25 03:08) PBNP (02/08/25 03:08) Electrocardiogram (02/08/25 03:08) Hs Troponin I W Calculations (02/08/25 03:08) Hs Troponin I W Calculations (02/08/25 05:08) Vital Signs 02/08/25 02/08/25 02/08/25 02/08/25 03:08 03:28 03:29 04:08 Temp 98.1 98.1 98.1 Pulse 70 63 63 Resp 16 9 15 B/P (MAP) 132/65 132/56 (81) 114/55 (74) Pulse Ox 97 100 100 O2 Flow Rate 0 0 0 Laboratory Tests Test 02/08/25 03:08 02/08/25 04:45 White Blood Count 6.4 Red Blood Count 4.23 L Hemoglobin 12.6 L Hematocrit 38.3 L Mean Corpuscular Volume 90.5 Mean Corpuscular Hemoglobin 29.9 Mean Corpuscular Hemoglobin Concent 33.0 Red Cell Distribution Width 17.9 H Platelet Count 203 Mean Platelet Volume 7.5 Neutrophils (%) (Auto) 55.6 Lymphocytes (%) (Auto) 31.7 Monocytes (%) (Auto) 9.5 Eosinophils (%) (Auto) 2.5 Basophils (%) (Auto) 0.7 Neutrophils # (Auto) 3.6 Lymphocytes # (Auto) 2.0 Monocytes # (Auto) 0.6 Eosinophils # (Auto) 0.2 Basophils # (Auto) 0.0 CBC Comment Sodium Level 138 Potassium Level 3.8 Chloride Level 103 Carbon Dioxide Level 25.8 Anion Gap 9 Blood Urea Nitrogen 19 H Creatinine 1.26 H Estimated GFR/1.73 m2 56 BUN/Creatinine Ratio 15.1 Glucose Level 108 H Calcium Level 8.8 Troponin I High Sensitivity 22 19 Pro-B-Type Natriuretic Peptide 208 H Albumin 3.7 Chemistry Comments Troponin I High Sens Percent Delta 13 Troponin I Hi Sens Absolute Change -3 EKG/XRAY/CT/US/VASC/MRI EKG : Additional Comment EKG interpreted by myself shows time of 0308, rate 71, sinus rhythm, borderline right axis deviation, no ST changes Medical Decision Making Findings Patient presents to the emergency room for evaluation of chest pain. Differentials include but are not limited to musculoskeletal pain, ACS, aortic pathology, pulmonary embolism therefore emergent labs and imaging indicated. Chest x-ray is reassuring. Labs were reassuring especially in the light of troponins negative x2. Patient's symptoms were relieved by nitroglycerin how ever every other part of his story is atypical. Discussed patient's elevated heart score of five at length and offered admission. 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 ER precautions discussed. Departure Disposition: HOME / SELF CARE / HOMELESS Impression: Primary Impression: Chest pain Condition: Stable Discharge Instructions: Nonspecific Chest Pain, Adult Referrals: NO PRIMARY CARE PROVIDER (PCP) Signature Scribe Signature: No scribe Attestation: The note accurately reflects work and decisions made by me.Denny Mendez MD 02/08/25 05:39 DENNY MENDEZ MD Feb 08, 2025 03:18
[2025-02-08 03:38] LABS: CREATININE 1.26 MG/DL (0.60-1.10); PRO BRAIN NATRIURETIC PEPTIDE 208 PG/ML (0-125); TOTAL CARBON DIOXIDE 25.8 MMOL/L (24-32); eCRCL 57 ML/MIN; eGFR 56 ML/MIN
--- NOTE | 2025-02-08 03:42 | RADIOLOGY REPORT ---
CHEST RADIOGRAPH Indication: CP Technique: Single frontal view of the chest was obtained COMPARISON: DI CHEST,SINGLE VIEW on DOS: 10/03/24, DI CHEST,SINGLE VIEW on DOS: 09/27/24, DI CHEST,SINGL E VIEW on DOS: 09/25/24, DI CHEST,SINGLE VIEW on DOS: 09/24/24, DI CHEST,SINGLE VIEW on DOS: 09/23/24 FINDINGS: Lines and Tubes: None Lungs: Clear Pleura: No effusion. No pneumothorax. Cardiomediastinal contours: Unremarkable status post median sternotomy. Bones: Unremarkable IMPRESSION: 1. No acute disease.
--- NOTE | 2025-02-08 05:21 | ELECTROCARDIOGRAPH REPORT ---
[facility] Test Date: 2025-02-08 Test Time: 03:08:26 Pat Name: YOSHI COTE Department: EMERGENCY ROOM Room: Gender: M [employer]: : 1950 Requested By: CATHLEEN HAQUE Order Number: [id number] Reading MD: Measurements Intervals [place] Rate: 71 P: 80 DE: 219 QRS: 100 QRSD: 83 T: -53 QT: 435 QTc: 473 Interpretive Statements Sinus rhythm Borderline prolonged DE interval Right axis deviation Low voltage, precordial leads Borderline T abnormalities, inferior leads Baseline wander in lead(s) V1,V2 Please click the below link to view image of tracing.
[2025-02-08 05:46] VITALS: BP 143/69; PULSE 66; RESP 20; TEMP 98.1; O2SAT 97
== END 2025-02-08 06:02 | disposition home or self-care (01) ==
LOC: ER 03:03
DX: R07.9 Chest pain, unspecified (principal); R06.02 Shortness of breath; Z88.0 Allergy status to penicillin; Z88.5 Allergy status to narcotic agent; Z88.8 Allergy status to other drugs, medicaments and biological substances; Z95.1 Presence of aortocoronary bypass graft; Z79.82 Long term (current) use of aspirin
CPT/HCPCS: 36415; 71045; 80048; 83880; 84484; 85025; 93005; 99285